=== PATIENT | male | born 1990 | race African-American/Black ===

== ENCOUNTER 2023-05-28 12:11 | Emergency (ER) | payer BC, OTHER ==
[2023-05-28] MEDS ORDERED: IBUPROFEN 600 MG TABLET (FP) PO ONE (12:43)
[2023-05-28 12:46] VITALS: BP 130/60; PULSE 85; RESP 17; TEMP 98.3; BMI 42.5
== END 2023-05-28 13:11 | disposition home or self-care (01) ==
LOC: FER 12:11
DX: M54.50 Low back pain, unspecified (principal); V49.40XA Driver injured in collision with unspecified motor vehicles in traffic accident, initial encounter; Y92.410 Unspecified street and highway as the place of occurrence of the external cause
CPT/HCPCS: 99283-25

== ENCOUNTER 2024-12-01 10:32 | Emergency (ER) | payer OTHER ==
[2024-12-01 10:43] VITALS: BP 140/93; PULSE 92; RESP 18; TEMP 97.6; BMI 50.0
== END 2024-12-01 11:36 | disposition home or self-care (01) ==
LOC: JERFT 10:32
PROC: 0HQFXZZ Repair Right Hand Skin, External Approach (ICD-10-PCS; principal; 2024-12-01)
DX: S61.411A Laceration without foreign body of right hand, initial encounter (principal); W94.3 Exposure to rapid changes in air pressure during descent; Y99.0 Civilian activity done for income or pay
CPT/HCPCS: 99283-25

== ENCOUNTER 2024-12-03 10:50 | Emergency (ER) | payer OTHER ==
[2024-12-03 11:00] VITALS: BP 119/77; PULSE 73; RESP 20; TEMP 97.7; BMI 50.0
== END 2024-12-03 11:20 | disposition home or self-care (01) ==
LOC: JERFT 10:50
DX: Z48.00 Encounter for change or removal of nonsurgical wound dressing (principal)
CPT/HCPCS: 99282-25